=== PATIENT | male | born 1965 | race Caucasian/White ===

== ENCOUNTER → 2017-08-27 16:48 | Outpatient (CLI) | payer BC, SELFPAY ==
[2017-08-27 17:11] LABS: Basophils % 0.4 % (0.1-2.0); Eosinophils # 0.3 K/mm3 (0.0-0.4); Eosinophils % 2.6 % (0.1-12.0); Hematocrit 41.7 % (42.0-52.0); Hemoglobin 14.3 g/dL (14.1-18.0); Lymphocytes # 2.4 K/mm3 (0.7-4.5); Lymphocytes % 23.1 K/mm3 (10-50); Mean Corpuscular HGB Conc 34.3 g/dL (31.8-35.4); Mean Corpuscular Hemoglobin 30.6 pg (27.0-31.2); Mean Corpuscular Volume 89.2 fl (80-94); Mean Platelet Volume 6.8 fl (7.4-10.4); Monocytes # 0.8 K/mm3 (0.1-1.0); Monocytes % 7.7 % (1.7-9.3); Neutrophils # 6.9 K/mm3 (1.8-7.8); Neutrophils % 66.2 % (37.0-80.0); Platelet Count 215 K/mm3 (142-424); Red Blood Count 4.68 M/mm3 (4.60-6.20); Red Cell Distribution Width 12.5 % (11.5-17.5); White Blood Count 10.5 K/mm3 (4.8-10.8)
[2017-08-27 18:13] LABS: Erythrocyte Sedimentation Rate 9 mm/hr (0-20)
[2017-08-27 18:45] LABS: Anion Gap 14.2 mEq/L (5-15); Blood Urea Nitrogen 13 mg/dL (7-18); Carbon Dioxide 29 mmol/L (21.0-32.0); Chloride 104 mmol/L (98-107); Creatinine,Serum 0.75 mg/dL (0.70-1.30); Estimated Glomerular Filt Rate 110 ml/min (>60); GFR (African American) 133 ML/MIN (>60); Glucose 92 mg/dL (74-106); Potassium 4.2 mmoL/L (3.5-5.1); Sodium 143 mmol/L (136-145); Uric Acid 8.5 mg/dL (2.6-7.2)
== END ==
PROVIDERS: PCP Internal Medicine Adolescent Medicine; Visit Provider Nurse Practitioner Family
DX: M25.571 Pain in right ankle and joints of right foot (principal); Z87.39 Personal history of other diseases of the musculoskeletal system and connective tissue
CPT/HCPCS: 36415; 80048; 84550; 85025; 85651

== ENCOUNTER → 2017-10-17 16:11 | Outpatient (REF) | payer BC, SELFPAY ==
[2017-10-17 18:13] LABS: Hemoglobin A1C 5.7 % (0.0-7.0)
[2017-10-17 18:23] LABS: Basophils # 0.1 K/mm3 (0-0.2); Basophils % 0.6 % (0.1-2.0); Eosinophils # 0.3 K/mm3 (0.0-0.4); Eosinophils % 3.3 % (0.1-12.0); Hematocrit 42.4 % (42.0-52.0); Hemoglobin 14.5 g/dL (14.1-18.0); Lymphocytes # 2.3 K/mm3 (0.7-4.5); Lymphocytes % 30.6 K/mm3 (10-50); Mean Corpuscular HGB Conc 34.2 g/dL (31.8-35.4); Mean Corpuscular Hemoglobin 31.2 pg (27.0-31.2); Mean Corpuscular Volume 91.5 fl (80-94); Mean Platelet Volume 6.8 fl (7.4-10.4); Monocytes # 0.6 K/mm3 (0.1-1.0); Monocytes % 8.3 % (1.7-9.3); Neutrophils # 4.4 K/mm3 (1.8-7.8); Neutrophils % 57.2 % (37.0-80.0); Platelet Count 246 K/mm3 (142-424); Red Blood Count 4.63 M/mm3 (4.60-6.20); Red Cell Distribution Width 12.6 % (11.5-17.5); White Blood Count 7.6 K/mm3 (4.8-10.8)
[2017-10-17 20:00] LABS: Alanine Aminotransferase 36 U/L (12-78); Albumin Level 4.7 gm/dL (3.4-5.0); Albumin/Globulin Ratio 1.7 (1.1-1.8); Alkaline Phosphatase 103 U/L (46-116); Anion Gap 12.5 mEq/L (5-15); Aspartate Amino Transferase 25 U/L (15-37); Bilirubin,Total 0.6 mg/dL (0.2-1.0); Blood Urea Nitrogen 9 mg/dL (7-18); Carbon Dioxide 31 mmol/L (21.0-32.0); Chloride 103 mmol/L (98-107); Chol/HDL Ratio 4.8 (1-3.5); Cholesterol 183 mg/dL (140-200); Estimated Glomerular Filt Rate 119 ml/min (>60); GFR (African American) 144 ML/MIN (>60); Globulin 2.8 gm/dl (1.3-3.2); Glucose 91 mg/dL (74-106); HDL Cholesterol 38 mg/dL (27-67); LDL Cholesterol 103 mg/dL (0-130); Potassium 4.5 mmoL/L (3.5-5.1); Sodium 142 mmol/L (136-145); Total Protein,Serum 7.5 gm/dL (6.4-8.2); Triglycerides 210 mg/dL (30-200); VLDL Cholesterol 42 mg/dL (0-40)
[2017-10-19 07:13] LABS: Hep A Ab, IgM Negative (Negative); Hepatitis B Core Antibody IgM Negative (Negative); Hepatitis B Surface Antigen Negative (Negative)
[2017-10-19 10:54] LABS: CA 19-9 7 U/mL (0-35); Hepatitis C Antibody <0.1 s/co ratio (0.0-0.9); PSA, Free 0.21 ng/mL; Prostate Specific Ag 1.2 ng/mL (0.0-4.0)
== END ==
LOC: LAB 16:11
PROVIDERS: Visit Provider Nurse Practitioner Family
DX: R53.82 Chronic fatigue, unspecified (principal); Z80.0 Family history of malignant neoplasm of digestive organs; Z83.3 Family history of diabetes mellitus
CPT/HCPCS: 80053; 80061; 80074; 83036; 84153; 84154; 85025; 86316

== ENCOUNTER → 2018-11-15 10:00 | Outpatient (CLI) | payer BC, SELFPAY ==
[2018-11-15 10:05] LABS: Microscopic, Urine URINE MICROSCOPIC (MICROSCOPIC)
--- NOTE | 2018-11-15 10:20 | XR_ITS ---
XR chest 2V HISTORY: ITS.REASON: PRIOR SMOKER ORDERING PHYSICIAN: Referral ProviderMD PATIENT AGE: 53 years Technique: PA and lateral CXR COMPARISON: . 05/28/2008 CXR. FINDINGS: The lungs appear well expanded clear with nothing definitely acute. No significant change since prior studies. Upper normal markings toward right lower lobe reflecting some minor chronic changes but stable. No pleural effusion or pneumothorax. No lung nodule or lesion of significance.. The heart, armiro and mediastinal structures satisfactory. Normal pulmonary vascularity Chest wall and T-spine unremarkable.. IMPRESSION stable chest nothing definitely acute. Lungs clear.
[2018-11-15 10:53] LABS: Basophils % 0.7 % (0.1-2.0); Eosinophils # 0.3 K/mm3 (0.0-0.4); Eosinophils % 5.5 % (0.1-12.0); Hematocrit 44.1 % (42.0-52.0); Hemoglobin 15.5 g/dL (14.1-18.0); Lymphocytes # 2.2 K/mm3 (0.7-4.5); Lymphocytes % 34.9 % (10-50); Mean Corpuscular HGB Conc 35.2 g/dL (31.8-35.4); Mean Corpuscular Hemoglobin 31.4 pg (27.0-31.2); Mean Corpuscular Volume 89.3 fl (80-94); Mean Platelet Volume 6.3 fl (7.4-10.4); Monocytes # 0.4 K/mm3 (0.1-1.0); Monocytes % 6.9 % (1.7-9.3); Neutrophils # 3.2 K/mm3 (1.8-7.8); Neutrophils % 52.1 % (37.0-80.0); Platelet Count 227 K/mm3 (142-424); Red Blood Count 4.93 M/mm3 (4.60-6.20); Red Cell Distribution Width 12.7 % (11.5-17.5); White Blood Count 6.2 K/mm3 (4.8-10.8)
[2018-11-15 11:02] LABS: INR 0.92 (0.9-1.1); Prothrombin Time 9.5 seconds (9.4-11.8)
[2018-11-15 11:09] LABS: Hemoglobin A1C 5.8 % (0.0-7.0)
[2018-11-15 11:33] LABS: Anion Gap 15.3 mEq/L (5-15); Blood Urea Nitrogen 8 mg/dL (7-18); Calcium 9.1 mg/dL (8.5-10.1); Carbon Dioxide 25 mmol/L (21.0-32.0); Chloride 103 mmol/L (98-107); Creatinine,Serum 0.72 mg/dL (0.70-1.30); Estimated Glomerular Filt Rate 115 ml/min (>60); GFR (African American) 139 ML/MIN (>60); Glucose 128 mg/dL (74-106); Sodium 139 mmol/L (136-145)
[2018-11-15 11:35] LABS: Potassium 4.3 mmoL/L (3.5-5.1)
[2018-11-15 11:44] LABS: Appearance,Urine CLEAR (Clear); Bilirubin,Urine Negative (Negative); Blood, Urine Negative (Negative); Color,Urine YELLOW (Yellow); Glucose,Urine (UA) Negative (Negative); Ketones,Urine Negative (Negative); Leukocyte Esterase,Urine Negative (Negative); Nitrate,Urine Negative (Negative); Protein,Urine Negative (Negative); Urobilinogen,Urine 0.2 EU/dl (0.2)
[2018-11-15 12:16] LABS: RBC,Urine Occasional #/hpf (0-3)
[2018-11-15 12:17] LABS: Bacteria,Urine Trace /lpf; Mucus,Urine Trace /lpf
== END ==
PROVIDERS: Visit Provider Orthopaedic Surgery Adult Reconstructive Orthopaedic Surgery
DX: Z01.818 Encounter for other preprocedural examination (principal); M17.11 Unilateral primary osteoarthritis, right knee
CPT/HCPCS: 36415; 71046; 80048; 81001; 83036; 85025; 85610; 85730; 87081; 87086; 93005

== ENCOUNTER → 2018-12-11 17:36 | Outpatient (CLI) | payer BC, SELFPAY ==
[2018-12-11 17:43] LABS: Microscopic, Urine URINE MICROSCOPIC (MICROSCOPIC)
[2018-12-11 18:14] LABS: Basophils # 0.1 K/mm3 (0-0.2); Basophils % 0.9 % (0.1-2.0); Eosinophils # 0.3 K/mm3 (0.0-0.4); Eosinophils % 4.5 % (0.1-12.0); Hematocrit 43.9 % (42.0-52.0); Hemoglobin 15.2 g/dL (14.1-18.0); Lymphocytes # 2.6 K/mm3 (0.7-4.5); Lymphocytes % 35.5 % (10-50); Mean Corpuscular HGB Conc 34.6 g/dL (31.8-35.4); Mean Corpuscular Hemoglobin 30.9 pg (27.0-31.2); Mean Corpuscular Volume 89.4 fl (80-94); Mean Platelet Volume 6.3 fl (7.4-10.4); Monocytes # 0.5 K/mm3 (0.1-1.0); Monocytes % 6.4 % (1.7-9.3); Neutrophils # 3.9 K/mm3 (1.8-7.8); Neutrophils % 52.7 % (37.0-80.0); Platelet Count 233 K/mm3 (142-424); Red Blood Count 4.91 M/mm3 (4.60-6.20); Red Cell Distribution Width 12.5 % (11.5-17.5); White Blood Count 7.4 K/mm3 (4.8-10.8)
[2018-12-11 18:23] LABS: Appearance,Urine CLEAR (Clear); Bilirubin,Urine Negative (Negative); Blood, Urine Negative (Negative); Color,Urine YELLOW (Yellow); Glucose,Urine (UA) Negative (Negative); Ketones,Urine Negative (Negative); Leukocyte Esterase,Urine Negative (Negative); Nitrate,Urine Negative (Negative); Protein,Urine Negative (Negative); Specific Gravity, Urine 1.015 (1.005-1.030); Urobilinogen,Urine 0.2 EU/dl (0.2)
[2018-12-11 18:49] LABS: WBC,Urine Occasional #/hpf (0-3)
[2018-12-11 18:50] LABS: Bacteria,Urine Trace /lpf
[2018-12-11 19:03] LABS: Anion Gap 13.8 mEq/L (5-15); Blood Urea Nitrogen 10 mg/dL (7-18); Calcium 9.3 mg/dL (8.5-10.1); Carbon Dioxide 27 mmol/L (21.0-32.0); Chloride 104 mmol/L (98-107); Creatinine,Serum 0.72 mg/dL (0.70-1.30); Estimated Glomerular Filt Rate 115 ml/min (>60); GFR (African American) 139 ML/MIN (>60); Glucose 96 mg/dL (74-106); Potassium 3.8 mmoL/L (3.5-5.1); Sodium 141 mmol/L (136-145)
[2018-12-11 19:20] LABS: Hemoglobin A1C 5.8 % (0.0-7.0)
[2018-12-13 06:13] LABS: Hep A Ab, IgM Negative (Negative); Hepatitis B Core Antibody IgM Negative (Negative); Hepatitis B Surface Antigen Negative (Negative)
[2018-12-13 07:02] LABS: Hepatitis C Antibody <0.1 s/co ratio (0.0-0.9)
== END ==
PROVIDERS: Orthopaedic Surgery Adult Reconstructive Orthopaedic Surgery; PCP Nurse Practitioner Family; Visit Provider Nurse Practitioner Family
DX: Z20.5 Contact with and (suspected) exposure to viral hepatitis (principal)
CPT/HCPCS: 36415; 80048; 80074; 81001; 83036; 85025; 87081; 87086

== ENCOUNTER 2019-02-26 10:00 | Outpatient (RCR) | payer BC, SELFPAY | END 2019-02-26 10:05 | disposition home or self-care (01) | LOC: PT 10:00 | PROVIDERS: Visit Provider Orthopaedic Surgery Adult Reconstructive Orthopaedic Surgery | DX: Z96.651 Presence of right artificial knee joint (principal) | CPT/HCPCS: 97010; 97014; 97016; 97110; 97140; 97163; 97164; G0283 ==

== ENCOUNTER → 2019-03-17 07:07 | Outpatient (CLI) | payer BC, SELFPAY ==
[2019-03-17 07:11] LABS: Microscopic, Urine URINE MICROSCOPIC (MICROSCOPIC)
--- NOTE | 2019-03-17 07:26 | ECG_ITS ---
APPROVED REPORT Exam: Resting ECG HR:80 bpm ECG Measurements Heart Rate 80 AXES AZ 100 P 41 QRSd 88 QRS -8 QT 376 T 51 QTc 433 <Conclusion> Sinus rhythm with short AZ Moderate voltage criteria for LVH, may be normal variant Nonspecific T wave abnormality Abnormal ECG Electronically signed by : Keo Cardona, 03/17/2019 16:53:09
--- NOTE | 2019-03-17 07:29 | XR_ITS ---
PROCEDURE: XR CHEST 2V CLINICAL HISTORY: HX TOBACCO USE, PRE OP Tobacco use COMPARISON: No exams were available for comparison FINDINGS: The cardiomediastinal silhouette and pulmonary vascularity are within normal limits.The lungs are clear without infiltrates, suspicious nodules, or pleural effusions. No acute bony abnormalities. IMPRESSION: No acute findings. Dictated by: Michael English MD 03/17/2019 11:10 Signed by: <Electronically signed by Michael English MD in [place]> 03/17/2019 11:10
[2019-03-17 07:34] LABS: Activated Partial Thrombo Time 26.9 seconds (23.6-34.0); INR 0.95 (0.9-1.1); Prothrombin Time 9.9 seconds (9.4-11.8)
[2019-03-17 08:00] LABS: Appearance,Urine CLEAR (Clear); Bilirubin,Urine Negative (Negative); Blood, Urine Negative (Negative); Color,Urine YELLOW (Yellow); Glucose,Urine (UA) Negative (Negative); Ketones,Urine Negative (Negative); Leukocyte Esterase,Urine Negative (Negative); Nitrate,Urine Negative (Negative); PH,Urine 5.5 (5.0-8.5); Protein,Urine Negative (Negative); Specific Gravity, Urine 1.025 (1.005-1.030); Urobilinogen,Urine 0.2 EU/dl (0.2)
[2019-03-17 08:30] LABS: Bacteria,Urine Trace /lpf; Squamous Epithelial Cell,Urine Occasional #/hpf (0-5)
[2019-03-17 08:34] LABS: Basophils % 0.8 % (0.1-2.0); Eosinophils # 0.3 K/mm3 (0.0-0.4); Eosinophils % 4.4 % (0.1-12.0); Hematocrit 44.7 % (42.0-52.0); Hemoglobin 14.8 g/dL (14.1-18.0); Lymphocytes # 2.1 K/mm3 (0.7-4.5); Lymphocytes % 36.5 % (10-50); Mean Corpuscular HGB Conc 33.2 g/dL (31.8-35.4); Mean Corpuscular Hemoglobin 29.6 pg (27.0-31.2); Mean Corpuscular Volume 89.1 fl (80-94); Mean Platelet Volume 6.6 fl (7.4-10.4); Monocytes # 0.4 K/mm3 (0.1-1.0); Monocytes % 6.2 % (1.7-9.3); Neutrophils % 52.1 % (37.0-80.0); Platelet Count 263 K/mm3 (142-424); Red Blood Count 5.02 M/mm3 (4.60-6.20); Red Cell Distribution Width 13.4 % (11.5-17.5); White Blood Count 5.7 K/mm3 (4.8-10.8)
[2019-03-17 13:40] LABS: Anion Gap 16.4 mEq/L (5-15); Blood Urea Nitrogen 11 mg/dL (7-18); Calcium 9.4 mg/dL (8.5-10.1); Carbon Dioxide 28 mmol/L (21.0-32.0); Chloride 106 mmol/L (98-107); Creatinine,Serum 0.82 mg/dL (0.70-1.30); Estimated Glomerular Filt Rate 99 ml/min (>60); GFR (African American) 119 ML/MIN (>60); Glucose 133 mg/dL (74-106); Potassium 4.4 mmoL/L (3.5-5.1); Sodium 146 mmol/L (136-145)
== END ==
PROVIDERS: Visit Provider Orthopaedic Surgery Adult Reconstructive Orthopaedic Surgery
DX: Z01.818 Encounter for other preprocedural examination (principal); M17.12 Unilateral primary osteoarthritis, left knee
CPT/HCPCS: 36415; 71046; 80048; 81001; 83036; 85025; 85610; 85730; 87081; 93005

== ENCOUNTER 2019-06-02 08:30 | Outpatient (RCR) | payer BC, SELFPAY | END 2019-06-02 08:35 | disposition home or self-care (01) | LOC: PT 08:30 | PROVIDERS: PCP Nurse Practitioner Family; Visit Provider Orthopaedic Surgery Adult Reconstructive Orthopaedic Surgery | DX: Z96.652 Presence of left artificial knee joint (principal); M25.562 Pain in left knee | CPT/HCPCS: 97010; 97014; 97016; 97110; 97140; 97163; 97164; G0283 ==

== ENCOUNTER → 2019-08-19 08:32 | Outpatient (POV) | payer BC, SELFPAY | PROVIDERS: Visit Provider Dermatology | DX: Z00.00 Encounter for general adult medical examination without abnormal findings (principal) ==

== ENCOUNTER → 2019-09-23 14:19 | Outpatient (CLI) | payer BC, SELFPAY ==
--- NOTE | 2019-09-23 14:23 | XR_ITS ---
PROCEDURE: XR CERVICAL SPINE 5V CLINICAL INDICATION: neck pain COMPARISON: No exams were available for comparison FINDINGS: There is normal alignment. No fracture or dislocation. No lytic or blastic change. The disc spaces are well preserved. No evidence of cervical rib. IMPRESSION: Negative cervical spine Dictated by: Michael English MD 09/23/2019 16:03 Electronically signed by Michael English MD in [place] 09/23/2019 16:03
--- NOTE | 2019-09-23 14:23 | XR_ITS ---
PROCEDURE: XR HAND LT MIN 3V CLINICAL INDICATION: left hand pain COMPARISON: No exams were available for comparison FINDINGS: No fracture or dislocation. No lytic or blastic change. There is normal mineralization. The joint spaces are well-preserved. No significant degenerative/arthritic changes. No erosive changes evident. Other findings:There is some minimal ossification along the lateral aspect of the 1st metacarpal-carpal joint and there is an old fracture of the ulnar styloid process versus ununited ossification center with calcification of the triangular fibrocartilage. IMPRESSION: No acute finding. There is some periarticular ossification the 1st metacarpal-carpal joint along with old ulnar styloid fracture versus ununited ossification center with calcification of the triangular fibrocartilage Dictated by: Michael English MD 09/23/2019 15:44 Electronically signed by Michael English MD in [place] 09/23/2019 15:44
--- NOTE | 2019-09-23 14:23 | XR_ITS ---
PROCEDURE: XR LUMBAR SPINE MIN 4V CLINICAL INDICATION: back pain COMPARISON: No exams were available for comparison FINDINGS: There is normal alignment. No acute fracture or dislocation. No lytic or blastic change. Minimal endplate hypertrophic changes are present inferiorly at L2 and L3. There is mild degenerative disc disease at L5-S1. Incidental calcification is noted in the right upper quadrant and may be due to gallstones or upper pole renal stones. Gallbladder ultrasound may provide further evaluation. There is a small calcific density overlying the right ilium nonspecific. Vascular calcifications are also noted. IMPRESSION: Mild degenerative changes, mild degenerative disc disease L5-S1, Right upper quadrant cluster calcifications consistent with gallstones or possibly renal stones Dictated by: Michael English MD 09/23/2019 15:47 Electronically signed by Michael English MD in [place] 09/23/2019 15:47
[2019-09-23 17:35] LABS: Basophils # 0.1 K/mm3 (0-0.2); Basophils % 0.9 % (0.1-2.0); Eosinophils # 0.3 K/mm3 (0.0-0.4); Eosinophils % 4.1 % (0.1-12.0); Hematocrit 43.8 % (42.0-52.0); Hemoglobin 15.5 g/dL (14.1-18.0); Lymphocytes # 2.1 K/mm3 (0.7-4.5); Lymphocytes % 30.8 % (10-50); Mean Corpuscular HGB Conc 35.4 g/dL (31.8-35.4); Mean Corpuscular Hemoglobin 31.3 pg (27.0-31.2); Mean Corpuscular Volume 88.6 fl (80-94); Mean Platelet Volume 8.9 fl (7.4-10.4); Monocytes # 0.5 K/mm3 (0.1-1.0); Monocytes % 7.2 % (1.7-9.3); Neutrophils # 3.8 K/mm3 (1.8-7.8); Neutrophils % 56.9 % (37.0-80.0); Platelet Count 279 K/mm3 (142-424); Red Blood Count 4.95 M/mm3 (4.60-6.20); White Blood Count 6.7 K/mm3 (4.8-10.8)
[2019-09-23 17:57] LABS: Alanine Aminotransferase 28 U/L (12-78); Albumin Level 4.9 g/dl (3.5-5.0); Albumin/Globulin Ratio 1.8 (1.1-1.8); Alkaline Phosphatase 83 U/L (38-126); Anion Gap 13.9 mEq/L (5-15); Aspartate Amino Transferase 36 U/L (17-59); Bilirubin,Total 0.8 mg/dl (0.2-1.3); Blood Urea Nitrogen 11 mg/dl (9-20); Calcium 10.1 mg/dl (8.4-10.2); Carbon Dioxide 28 mmol/L (22.0-30.0); Chloride 102 mmol/L (98-107); Estimated Glomerular Filt Rate 141 ml/min (>60); GFR (African American) 171 ML/MIN (>60); Globulin 2.7 g/dL (1.3-3.2); Glucose 101 mg/dl (74-100); Potassium 3.9 mmoL/L (3.5-5.1); Sodium 140 mmol/L (136-145); Total Protein,Serum 7.6 g/dl (6.3-8.2); Uric Acid 7.8 mg/dl (3.5-8.5)
[2019-09-23 18:03] LABS: C-Reactive Protein 1.2 mg/L (0-4)
[2019-09-23 19:49] LABS: Erythrocyte Sedimentation Rate 20 mm/hr (0-20)
[2019-10-03 16:09] LABS: Anti-Cyclic Citrullinated Pept 10
[2019-10-03 16:10] LABS: RA Latex Turbid. <10.0
[2019-10-03 16:12] LABS: Anti-DNA (DS) Ab Qn <1; Anti-Smith Antibody <0.2; Antiscleroderma-70 Antibodies <0.2; RNP Antibodies <0.2
[2019-10-03 16:13] LABS: Anti-Centromere B Antibodies <0.2; Anti-Jo-1 <0.2; Antichromatin Antibodies <0.2; Sjogren's Anti-SS-A <0.2; Sjogren's Anti-SS-B <0.2
== END ==
PROVIDERS: PCP Nurse Practitioner Family; Visit Provider Emergency Medicine
DX: M54.2 Cervicalgia (principal); M54.9 Dorsalgia, unspecified; M19.90 Unspecified osteoarthritis, unspecified site; M54.5 Low back pain
CPT/HCPCS: 72050; 72110; 73130; 80053; 84550; 85025; 85651; 86140; 86200; 86225; 86235; 86431

== ENCOUNTER → 2019-09-23 17:15 | Outpatient (CLI) | payer BC, SELFPAY | PROVIDERS: Visit Provider Emergency Medicine | DX: M54.2 Cervicalgia (principal) | CPT/HCPCS: 80053; 84550; 85025; 85651; 86140; 86200; 86225; 86235; 86431 ==

== ENCOUNTER → 2019-10-07 08:36 | Outpatient (CLI) | payer BC, SELFPAY ==
--- NOTE | 2019-10-07 10:47 | XR_ITS ---
PROCEDURE: XR ANKLE WT BEARING LT MIN 3V CLINICAL INDICATION: ankle pain and instability Left plantar foot pain COMPARISON: No exams were available for comparison FINDINGS: No fracture or dislocation. No lytic or blastic change. The joint space is well preserved. The ankle mortise is preserved. The talar dome has an unremarkable appearance. There is a small well-circumscribed calcific density at the tip of the lateral malleolus and may be due to an old avulsion fracture versus ununited ossification center IMPRESSION: Old avulsion fracture versus ununited ossification center at the lateral malleolus otherwise negative Dictated by: Michael English MD 10/07/2019 11:54 Electronically signed by Michael English MD in [place] 10/07/2019 11:54
--- NOTE | 2019-10-07 10:47 | XR_ITS ---
PROCEDURE: XR ANKLE WT BEARING RT MIN 3V CLINICAL INDICATION: ankle pain and instability COMPARISON: No exams were available for comparison FINDINGS: No fracture or dislocation. No lytic or blastic change. The joint space is well preserved. The ankle mortise is preserved. The talar dome has an unremarkable appearance. IMPRESSION: No acute findings. Dictated by: Michael English MD 10/07/2019 11:25 Electronically signed by Michael English MD in [place] 10/07/2019 11:25
--- NOTE | 2019-10-07 10:47 | XR_ITS ---
PROCEDURE: XR FOOT WT BEARING RT 3V CLINICAL INDICATION: foot pain Medial pain COMPARISON: No exams were available for comparison FINDINGS: No fracture or dislocation. No lytic or blastic change. There is normal mineralization. The joint spaces are well-preserved. No significant degenerative/arthritic changes. No erosive changes evident. Other findings:None. IMPRESSION: Negative right Dictated by: Michael English MD 10/07/2019 11:51 Electronically signed by Michael English MD in [place] 10/07/2019 11:51
--- NOTE | 2019-10-07 10:47 | XR_ITS ---
PROCEDURE: XR FOOT WT BEARING LT 3V CLINICAL INDICATION: foot pain COMPARISON: No exams were available for comparison FINDINGS: No fracture or dislocation. No lytic or blastic change. There is normal mineralization. The joint spaces are well-preserved. No significant degenerative/arthritic changes. No erosive changes evident. Other findings:Minimal vascular calcification noted IMPRESSION: No acute findings. Dictated by: Michael English MD 10/07/2019 11:55 Electronically signed by Michael English MD in [place] 10/07/2019 11:55
== END ==
PROVIDERS: PCP Nurse Practitioner Family; Visit Provider Podiatrist
DX: M79.671 Pain in right foot (principal); M79.672 Pain in left foot; M25.571 Pain in right ankle and joints of right foot; M25.572 Pain in left ankle and joints of left foot
CPT/HCPCS: 73610; 73630

== ENCOUNTER → 2019-10-08 08:41 | Outpatient (CLI) | payer BC, SELFPAY ==
--- NOTE | 2019-10-08 08:52 | US_ITS ---
PROCEDURE: US ABDOMEN LIMITED CLINICAL INDICATION: ruq calcifications seen on xray Right upper quadrant calcifications noted on recent x-ray the COMPARISON: XR LUMBAR SPINE MIN 4V from 09/23/2019 FINDINGS: PANCREAS: Unremarkable. No obvious mass or abnormal fluid collection. No ductal dilatation LIVER: No focal liver lesions demonstrated. Homogeneous echogenicity. No intrahepatic biliary ductal dilatation evident. There is appropriate direction of blood flow within a non dilated portal vein RIGHT KIDNEY: There is a benign-appearing 2.6 cm cyst in the mid polar region of the right kidney. No hydronephrosis. No obvious renal calculi demonstrated. GALLBLADDER: No gallstones, gallbladder wall thickening, pericholecystic fluid, or biliary dilatation. No obvious gallstones are evident. There was some questionable shadowing within the neck of the gallbladder. This however was not persistent. IMPRESSION: No gallstones are demonstrated. The plain-film was suspicious for cholelithiasis. Suggest CT for further evaluation. Dictated by: Michael English MD 10/08/2019 15:46 Electronically signed by Michael English MD in [place] 10/08/2019 15:46
== END ==
PROVIDERS: PCP Nurse Practitioner Family; Visit Provider Physician Assistant
DX: R93.89 Abnormal findings on diagnostic imaging of other specified body structures (principal)
CPT/HCPCS: 76705

== ENCOUNTER → 2019-12-26 07:36 | Outpatient (CLI) | payer BC, SELFPAY ==
--- NOTE | 2019-12-26 07:45 | MR_ITS ---
PROCEDURE: MR LUMBAR SPINE WO CON CLINICAL INDICATION: back pain Low back pain COMPARISON: XR LUMBAR SPINE MIN 4V from 09/23/2019 TECHNIQUE: Standard multiplanar multiecho sequences are performed without contrast. 3-D MIP and myelographic images are also rendered and reviewed FINDINGS: Normal alignment. The spinal cord ends at the L1 level. There is diffuse heterogeneous T1 and T2 signal within the vertebra consistent with mild red marrow replacement which is of questionable clinical significance. T12-L1, L1-L2, L2-L3 have an unremarkable appearance. L3-L4: Facet ligamentum hypertrophy with mild bilateral lateral recess and foraminal narrowing L4-5: Mild disc desiccation with minimal bulging disc with facet and ligamentum hypertrophy with mild bilateral lateral recess and foraminal narrowing L5-S1: Degenerative disc disease with mild bulging disc along with facet ligamentum hypertrophy with moderate bilateral foraminal narrowing No extruded herniated disc or canal stenosis. Incidental note is made of a 2.8 cm right renal cyst IMPRESSION: 1. L3-L4: Facet ligamentum hypertrophy with mild bilateral lateral recess and foraminal narrowing 2. L4-5: Mild disc desiccation with minimal bulging disc with facet and ligamentum hypertrophy with mild bilateral lateral recess and foraminal narrowing 3. L5-S1: Degenerative disc disease with mild bulging disc along with facet ligamentum hypertrophy with moderate bilateral foraminal narrowing 4. No extruded herniated disc or canal stenosis. 5. Incidental note is made of a 2.8 cm right renal cyst Dictated by: Michael English MD 12/29/2019 07:21 Electronically signed by Michael English MD in [place] 12/29/2019 07:21
== END ==
PROVIDERS: PCP Nurse Practitioner Family; Visit Provider Emergency Medicine
DX: M54.9 Dorsalgia, unspecified (principal)
CPT/HCPCS: 72148; 76376

== ENCOUNTER → 2020-01-12 12:27 | Outpatient (POV) | payer BC, SELFPAY ==
[2020-01-12 12:57] VITALS: BP 146/69; PULSE 84; RESP 18; TEMP 36.9; O2SAT 99; BMI 34.4
--- NOTE | 2020-01-12 13:31 | HMH.PMCON ---
Assessment and Plan (1) Sacroiliitis Current visit: Yes Status: Chronic Category: Medical Code(s): M46.1 - Sacroiliitis, not elsewhere classified (2) DDD (degenerative disc disease), lumbar Current visit: No Status: Chronic Category: Medical Code(s): M51.36 - Other intervertebral disc degeneration, lumbar region - Assessment and plan all Dx Assessment and Plan for all problems:: I offered SI joint injections to the patient. He is unsure if he wants to move forward with this. He is asking for medication I discussed 800 mg ibuprofen to take along with his Tylenol. Patient states that he was put told by Dr. Long that it was unsure if he would be able to return to work. He is asking me about work. I discussed with him that are all ultimate goal would be for him to return to work. He has been instructed to call the office if he like to go forward with SI joint injections. Dr. Denny has reviewed this note and agrees with this plan of care. This note was dictated using voice recognition software and may contain errors or omissions HPI - Data of Consult Consult date: 01/12/20 Requesting Physician: Clotilde Vaca APRN Primary Care Provider: Marco Marie APRN - Consult Narrative Reason for consult: Back pain History of present illness: Mr. Dumas is a 54 year old male who presents today for consultation in regards to his low back pain. Patient noticed that he started having pain in his low back after his bilateral knee replacements. Patient rates his pain today 6 out of 10. He states is not too bad patient states that he takes Tylenol and Advil to help decrease his pain. He does have a positive Jackson test SI joint compression test and Gregory's test on the right side. Patient I discussed SI joint injections. Patient states he is unsure if he would like to move forward with this. He is in wondering if there is any medication that he can take to help. CC: Clotilde Vaca APRN [place] History I have reviewed the patient's past medical history: Yes Medical History: Denies:: Cancer, Diabetes Mellitus Type 1, Diabetes Mellitus Type 2, Internal Pacemaker, Lung Disease, MRSA, Seizures *Have you ever received a pneumonia vaccine?: Yes *Have you received a flu vaccine this season?: Yes Other Medical History: Reports: Arthritis, Other. Denies: Blood Transfusion Reaction Laterality Cases: Bilateral: Arthroscopy Knee Other Surgeries: Yes: Colonoscopy (2018). No: Pacemaker Amputation: No Fractures: No - *Social History Smoking Status: Never smoker Alcohol Intake: never Alcohol Intake Frequency:: other Substance Use Type: denies use *Occupational Status:: other Housing: house Household Members: other *Travel in the last 8 weeks: None Family Hx:: Cancer, Heart Attack, Diabetes Review of Systems - Review of Systems ROS General: no recent weight change, no fever, no sleep disturbances Respiratory: no cough, no shortness of air, no recurring pulmonary infections Cardiovascular/Peripheral Vascular: No chest pain, No palpitations, no edema, no shortness of breath. Gastrointestinal: no new onset incontinence, normal bowel movements reported Genitourinary: no new onset incontinence Musculoskeletal: back pain, SI joint pain Psychiatric: normal mood/ affect Neurological: [denies new onset weakness in extremities], [denies new onset balance issues] Meds Home Medications Medication Instructions Recorded Confirmed Type colchicine 0.6 mg capsule 0.6 mg PO DAILY 10/07/19 12/15/19 History diclofenac sodium 1 % topical gel 4 g TOPICAL QID PRN #100 g 10/07/19 12/15/19 Rx meloxicam 7.5 mg tablet 7.5 mg PO DAILY 30 Days #30 tab 11/18/19 12/15/19 Rx Allergies Allergy/AdvReac Type Severity Reaction Status Date / Time prochlorperazine Allergy Verified 12/15/19 10:28 [From Compazine] Objective Vital signs: Temp Pulse Resp BP Pulse Ox 98.5 F 84 18 146/69 H 99 06/
== END ==
PROVIDERS: PCP Nurse Practitioner Family; Visit Provider Clinical Nurse Specialist Family Health
DX: M46.1 Sacroiliitis, not elsewhere classified (principal); M51.36 Other intervertebral disc degeneration, lumbar region
CPT/HCPCS: 99202

== ENCOUNTER 2020-02-12 08:00 | Outpatient (RCR) | payer BC, SELFPAY ==
--- NOTE | 2019-12-24 11:23 | HMH.PTOPEV ---
PT Outpatient Evaluation Rehab PT Outpatient Evaluation Start: 12/24/19 10:59 Freq: Status: Active Protocol: Document 12/24/19 10:59 TRAVIS (Rec: 12/24/19 11:23 TRAVIS [id number]) Electronically Signed By Gerald Hernandez, PT 12/24/19 10:59 Outpatient Therapy Subjective History Subjective History Pt reports potential lifting injury in Jul/Aug d/t limitations in B knee ROM. Pt reports R sided LBP with intermittent radicular s/s into R hip area. Pt reports also currrently going to chiropractor with minimal improvements in LBP. Chief Complaint Pain,Stiff,Paresthesia, Weakness Symptom Type Ache,Sharp,Dull Symptoms Relieved By Rest/Positioning,Heat Symptoms Aggravated By Physical Activity,Twisting, Lifting Prior Functional Limitations Lifting,Housework,Standing, Walking,Bending/Stooping Current Functional Limitations Lifting,Housework,Standing, Walking,Bending/Stooping Symptom Description Constant but Variable Level of pain today (0-10) 6 Pain scale - at its best (0-10) 5 Pain scale - at its worst (0-10) 8 Lumbopelvic Eval Posture Thoracic Spine Posture Standing Position Neutral Lumbar Spine Posture Standing Position Flattened Assistive device Assistive Devices None / NA Gait Observation General Gait Pattern Observation Antalgic Gait Palapation tenderness right lumbar spinal tenderness Yes: 2-3/4 paraspinal tenderness Yes: 3/4 buttock tenderness Yes: 3/4 Accessory Movement L-spine Vertebrae Accessory Movements Central P/A [place] that Elicit Symptoms L3 bilateral L4 bilateral L5 bilateral Range of Motion Lumbar Spine Active Flexion Range of 0-60 Motion (degrees) Lumbar Spine Active Extension Range of 0-10 Motion (degrees) Left Lumbar Spine Lateral Flexion Active 0-25 Range of Motion (degrees) Right Lumbar Spine Lateral Flexion 0-15 Active Range of Motion (degrees) Lumbar Spine ROM Limitations Pain Manual Muscle Test Bilateral Knee Extension Strength Grade 4 Good Knee Flexion Strength Grade 4- Good- Hip Flexion Strength Grade 4- Good- Extensor Hallucis Longus Strength Grade 5 Normal Ankle Dorsiflexion Strength Grade 5 Normal Gastronemius/Soleus Strength Grade 5 Normal DTR Rt Patellar 1+ Lt Patellar
--- NOTE | 2020-01-30 08:22 | HMH.RHREAS ---
Rehab Reassessment Rehab OP Re-assessment Start: 01/30/20 07:58 Freq: Status: Active Protocol: Document 01/30/20 07:58 TRAVIS (Rec: 01/30/20 08:22 [id number]) Electronically Signed By Gerald Hernandez, PT 01/30/20 07:58 Rehab Re-assessment Subjective Subjective PT REPORTS INCREASED LBP SINCE FALLING A COUPLE DAYS AGO, ' IT WAS ABOUT 4-5/10, AND NOW IT'S MORE LIKE 7/10' ON VAS. Objective Objective Notes AROM: L-SPINE FLX 0-70, EXT 0- 20, B SB 0-30 MMT: B HIP FLX 4+/5, B KNEE FLX 4+/5 TTP: B LUMBAR PARA 1-2 Assessment Progress Assessment Progressing as Expected Assessment Notes PT W/IMPROVED AROM, STRENGTH, AND TTP Patient goals met STG'S 02/04 LTG'S 09/07 Goals Not Met STG'S 09/07, LTG'S 02/04 Plan Plan PT TO CONT. W/SKILLED P.T. TO MAKE FURTHER IMPROVEMENTS IN AROM, STRENGTH, ADN TTP TO ALLOW FOR OPTIMAL FUNCTION. PT HAS ALSO BEEN ADVISED TO LIMIT BENDING, LIFTING, TWISTING ACTIVITES 'AROUND THE HOUSE', PADDY. WHILE CARRYING ANYTHING >20#. Frequency of Therapy 1-2X/WK Duration of therapy 3-4WKS Time and Billing Re-Eval Time 15 Re-Eval Billing Units 1 PHYSICIAN CERTIFICATION: I certify the specified therapy services for Gavin Dumas are required, authorized, and reviewed every 30 days.
== END 2020-02-12 08:05 | disposition home or self-care (01) ==
LOC: PT 08:00
PROVIDERS: PCP Nurse Practitioner Family; Visit Provider Emergency Medicine
DX: M54.5 Low back pain (principal)
CPT/HCPCS: 97010; 97012; 97014; 97035; 97110; 97140; 97163; 97164; G0283

== ENCOUNTER → 2020-07-21 14:50 | Outpatient (CLI) | payer BC, SELFPAY ==
[2020-07-21 15:09] LABS: Basophils # 0.1 K/mm3 (0-0.2); Basophils % 0.9 % (0.1-2.0); Eosinophils # 0.3 K/mm3 (0.0-0.4); Eosinophils % 3.6 % (0.1-12.0); Hematocrit 49.1 % (42.0-52.0); Hemoglobin 16.2 g/dL (14.1-18.0); Lymphocytes # 2.2 K/mm3 (0.7-4.5); Lymphocytes % 31.4 % (10-50); Mean Corpuscular HGB Conc 32.9 g/dL (31.8-35.4); Mean Corpuscular Hemoglobin 31.3 pg (27.0-31.2); Mean Corpuscular Volume 95.1 fl (80-94); Monocytes # 0.5 K/mm3 (0.1-1.0); Monocytes % 6.4 % (1.7-9.3); Neutrophils % 57.7 % (37.0-80.0); Platelet Count 263 K/mm3 (142-424); Red Blood Count 5.17 M/mm3 (4.60-6.20); Red Cell Distribution Width 13.2 % (11.5-17.5)
[2020-07-21 15:17] LABS: Alanine Aminotransferase 28 U/L (12-78); Albumin Level 4.6 g/dl (3.5-5.0); Albumin/Globulin Ratio 1.7 (1.1-1.8); Alkaline Phosphatase 98 U/L (38-126); Anion Gap 12.4 mEq/L (5-15); Aspartate Amino Transferase 32 U/L (17-59); Bilirubin,Total 1.6 mg/dl (0.2-1.3); Blood Urea Nitrogen 11 mg/dl (9-20); Calcium 9.7 mg/dl (8.4-10.2); Carbon Dioxide 29 mmol/L (22.0-30.0); Chloride 101 mmol/L (98-107); Chol/HDL Ratio 5.3 (1-3.5); Cholesterol 191 mg/dl (140-200); Estimated Glomerular Filt Rate 118 ml/min (>60); GFR (African American) 142 ML/MIN (>60); Globulin 2.7 g/dL (1.3-3.2); Glucose 161 mg/dl (74-100); HDL Cholesterol 36 mg/dl (40-60); Potassium 4.4 mmoL/L (3.5-5.1); Sodium 138 mmol/L (136-145); Total Protein,Serum 7.3 g/dl (6.3-8.2); Triglycerides 229 mg/dl (30-150); VLDL Cholesterol 46 mg/dL (0-40)
[2020-07-21 15:34] LABS: 25-OH Vitamin D, Total 27.7 ng/mL (30-100)
[2020-07-21 15:37] LABS: T4 (Thyroxine) 8.4 ug/dl (5.53-11.0)
[2020-07-21 15:51] LABS: Thyroid Stimulating Hormone 4.98 uIU/mL (0.465-4.68)
[2020-07-21 16:33] LABS: Hemoglobin A1C 5.8 % (4.0-6.0)
== END ==
PROVIDERS: Visit Provider Nurse Practitioner Family
DX: I10 Essential (primary) hypertension (principal); I99.8 Other disorder of circulatory system; R53.83 Other fatigue; R73.03 Prediabetes; E55.9 Vitamin D deficiency, unspecified
CPT/HCPCS: 80053; 80061; 82306; 83036; 84436; 84443; 85025

== ENCOUNTER 2020-10-07 07:00 | Emergency (ER) | payer BC, SELFPAY ==
[2020-10-07 07:00] VITALS: BP 136/88; PULSE 75; RESP 20; TEMP 36.5; O2SAT 97; BMI 34.8
--- NOTE | 2020-10-07 07:17 | CT_ITS ---
PROCEDURE: CT ABDOMEN PELVIS WO CON CLINICAL INDICATION: back/side pain Right flank pain COMPARISON: No exams were available for comparison TECHNIQUE: Axial images obtained with sagittal and coronal reformats. All CT scans at the facility use one or more dose reduction, viz: automated exposure control, ma/kV adjustment per patient size (including targeted exams where dose is matched to indication, i.e. head), or iterative reconstruction technique. FINDINGS: LOWER THORAX: Subpleural nodular opacity is present in the right lower lobe posteriorly at 4 mm with an additional 4 mm nodule in the right lower lobe posterior laterally. Coronary artery calcifications are present. ABDOMEN & PELVIS: Mild fatty liver. The gallbladder and spleen and and adrenal glands all have an unremarkable unenhanced appearance. There is subtle heterogeneous density present in the head of the pancreas with some rounding off of the uncinate process. Suggest either MRI or CT of the pancreas with pancreatic protocol for further evaluation. There are bilateral renal calculi measuring up to 8 mm in the upper pole on the right and 4 mm in the lower pole on the left. There is a 4 mm stone in the proximal right ureter with mild right-sided hydroureteronephrosis. Right renal cysts are noted Unremarkable appendix. No intestinal obstruction or free air is evident. No acute bony findings. There are mild degenerative changes of the hips. IMPRESSION: 4 mm proximal right ureteral stone with mild right obstructive uropathy with bilateral nephrolithiasis. Possible lesion in the head of the pancreas. Further workup with MRI or CT with pancreatic protocol suggested. Dictated by: Michael English MD 10/07/2020 10:16 Michael English MD in [place] 10/07/2020 10:16
--- NOTE | 2020-10-07 07:24 | PC.NURSE ---
Patient to CT.
--- NOTE | 2020-10-07 07:26 | PC.NURSE ---
Pt states he can not urinate right now, he just went before he left his home.
--- NOTE | 2020-10-07 07:27 | PC.NURSE ---
Pt states the pain medicine helped his pain
[2020-10-07 07:30] VITALS: BP 123/76; RESP 20; O2SAT 98
[2020-10-07 07:51] LABS: Basophils # 0.1 K/mm3 (0-0.2); Eosinophils # 0.4 K/mm3 (0.0-0.4); Eosinophils % 4.4 % (0.1-12.0); Hematocrit 47.1 % (42.0-52.0); Hemoglobin 15.3 g/dL (14.1-18.0); Lymphocytes # 2.7 K/mm3 (0.7-4.5); Lymphocytes % 33.8 % (10-50); Mean Corpuscular HGB Conc 32.5 g/dL (31.8-35.4); Mean Corpuscular Hemoglobin 30.8 pg (27.0-31.2); Mean Corpuscular Volume 94.9 fl (80-94); Mean Platelet Volume 6.9 fl (7.4-10.4); Monocytes # 0.6 K/mm3 (0.1-1.0); Monocytes % 7.5 % (1.7-9.3); Neutrophils # 4.3 K/mm3 (1.8-7.8); Neutrophils % 53.2 % (37.0-80.0); Platelet Count 241 K/mm3 (142-424); Red Blood Count 4.96 M/mm3 (4.60-6.20)
[2020-10-07 07:55] LABS: Alanine Aminotransferase 26 U/L (12-78); Albumin Level 4.9 g/dl (3.5-5.0); Albumin/Globulin Ratio 1.6 (1.1-1.8); Alkaline Phosphatase 85 U/L (38-126); Anion Gap 13.3 mEq/L (5-15); Aspartate Amino Transferase 41 U/L (17-59); Bilirubin,Total 1.3 mg/dl (0.2-1.3); Blood Urea Nitrogen 14 mg/dl (9-20); Calcium 9.3 mg/dl (8.4-10.2); Carbon Dioxide 26 mmol/L (22.0-30.0); Chloride 104 mmol/L (98-107); Creatinine Clearance Estimated 165 mL/min (50-200); Estimated Glomerular Filt Rate 101 ml/min (>60); GFR (African American) 122 ML/MIN (>60); Glucose 132 mg/dl (74-100); Potassium 4.3 mmoL/L (3.5-5.1); Sodium 139 mmol/L (136-145); Total Protein,Serum 7.9 g/dl (6.3-8.2)
[2020-10-07 07:57] LABS: Microscopic, Urine URINE MICROSCOPIC (MICROSCOPIC)
[2020-10-07 08:00] VITALS: BP 135/84; PULSE 88; RESP 18; O2SAT 99
--- NOTE | 2020-10-07 08:06 | HMH.EDGENADL ---
ED Disposition Clinical Impression: Kidney stone UTI (urinary tract infection) Qualifiers: Urinary tract infection type: acute pyelonephritis Qualified Code(s): N10 - Acute pyelonephritis Disposition: Home, Self-Care Condition on Discharge: Fair Instructions: DI for Kidney Infection, DI for Kidney Stones Prescriptions: Hydrocod/Acet 5/325 mg [[place] 5/325mg tablet] 1 tab PO Q6HP PRN #12 tab PRN Reason: Severe Pain Transmission Status: Received by [facility] Sulfamethoxazole/Trimethoprim [Bactrim DS tablet] 1 each PO BID #14 tab Transmission Status: Received by [facility] Tamsulosin HCl [Flomax 0.4mg capsule] 0.4 mg PO HS #10 cap Transmission Status: Received by [facility] Ibuprofen [Ibuprofen 600mg Tablet] 600 mg PO TID #15 tab Transmission Status: Received by [facility] Ondansetron [Zofran 4mg ODT] 4 mg PO TIDP PRN #12 tab PRN Reason: Vomiting Transmission Status: Pending to [facility] Referrals: Marco Marie APRN [Primary Care Provider] - Hema Sanders MD [Staff Physician] - Time of Disposition: 08:50 - Critical Care Critical Care Time: No Attestation: On 10/07/20, the high probability of a clinically significant, sudden or life threatening deterioration of the following system(s) required my full and direct attention, intervention and personal management. The time I documented below is in addition to time spent performing reported procedures but includes the following listed in this critical care notation. Medical Decision Making - Medical Records Medical records reviewed: Yes: I reviewed the patient's medical records. - Jonas Inquiry Pt receiving controlled substance: No Vital Signs: 10/07/20 07:00 10/07/20 07:30 10/07/20 08:00 Temperature 97.7 F Temperature Source Oral Pulse Rate [Left Radial] 75 88 Respiratory Rate 20 20 18 Blood Pressure [Right Arm] 136/88 123/76 135/84 Blood Pressure Mean [Right Arm] 104 91 101 Blood Pressure Source [Right Arm] Automatic Cuff Blood Pressure Position [Right Arm] Sitting 02 Sat by Pulse Oximetry 97 98 99 Oxygen Delivery Method Room Air Room Air Room Air 10/07/20 08:35 10/07/20 09:00 Temperature Temperature Source Pulse Rate [Left Radial] 62 84 Respiratory Rate 18 18 Blood Pressure [Right Arm] 122/78 126/70 Blood Pressure Mean [Right Arm] 92 88 Blood Pressure Source [Right Arm] Blood Pressure Position [Right Arm] 02 Sat by Pulse Oximetry 98 99 Oxygen Delivery Method Room Air - Lab Data Lab Results 10/07/20 07:20: WBC 8.0, RBC 4.96, Hgb 15.3, Hct 47.1, MCV 94.9 H, MCH 30.8, MCHC 32.5, RDW 13.0, Plt Count 241, MPV 6.9 L, Neut % (Auto) 53.2, Lymph % (Auto) 33.8, [place] % (Auto) 7.5, Eos % (Auto) 4.4, Baso % (Auto) 1.0, Neut # (Auto) 4.3, Lymph # (Auto) 2.7, [place] # (Auto) 0.6, Eos # (Auto) 0.4, Baso # (Auto) 0.1 10/07/20 07:20: Sodium 139, Potassium 4.3, Chloride 104, Carbon Dioxide 26, Anion Gap 13.3, BUN 14, Creatinine 0.80, Estimated Creat Clear 165, Estimated GFR 101, Est GFR ( Amer) 122, Glucose 132 H, Calcium 9.3, Total Bilirubin 1.3, AST 41, ALT 26, Alkaline Phosphatase 85, Total Protein 7.9, Albumin 4.9, Globulin 3.0, Albumin/Globulin Ratio 1.6 10/07/20 07:50: Urine Color [place], Urine Appearance Sl cloudy, Urine pH 5.5, Ur Specific [place] >= 1.030, Urine Protein 2+, Urine Glucose (UA) Negative, Urine Ketones Negative, Urine Blood 3+, Urine Nitrate Positive, Urine Bilirubin Negative, Urine Urobilinogen 0.2, Ur Leukocyte Esterase Negative, Urine RBC Tntc, Urine WBC Occasional, Ur Squamous Epith Cells Occasional, Amorphous Sediment 2+, Urine Bacteria 2+ Result diagrams: 10/07/20 07:20 10/07/20 07:20 Orders (Tests/Meds): ED MEDICATIONS Generic Name Dose Route Start Last Admin Trade Name Freq PRN Reason Stop Dose Admin Sodium Chloride 1,000 mls @ 999 mls/hr 10/07/20 08:15 10/07/20 08:20 Sod Chlor 0.9% 1000ml Bag IV 10/07/20 09:15
[2020-10-07 08:08] LABS: Appearance,Urine SL CLOUDY (Clear); Bilirubin,Urine Negative (Negative); Blood, Urine 3+ (Negative); Color,Urine ORANGE (Yellow); Glucose,Urine (UA) Negative (Negative); Ketones,Urine Negative (Negative); Leukocyte Esterase,Urine Negative (Negative); Nitrate,Urine POSITIVE (Negative); PH,Urine 5.5 (5.0-8.5); Protein,Urine 2+ (Negative); Specific Gravity, Urine >= 1.030 (1.005-1.030); Urobilinogen,Urine 0.2 EU/dl (0.2)
[2020-10-07 08:30] LABS: RBC,Urine TNTC #/hpf (0-3); Squamous Epithelial Cell,Urine Occasional #/hpf (0-5); WBC,Urine Occasional #/hpf (0-3)
[2020-10-07 08:31] LABS: Amorphous Sediment,Urine 2+ /lpf; Bacteria,Urine 2+ /lpf
[2020-10-07 08:35] VITALS: BP 122/78; PULSE 62; RESP 18; O2SAT 98
[2020-10-07 09:00] VITALS: BP 126/70; PULSE 84; RESP 18; O2SAT 99
[2020-10-07 09:20] VITALS: BP 133/76; PULSE 76; RESP 18; TEMP 36.7; O2SAT 98
== END 2020-10-07 09:21 | disposition home or self-care (01) ==
PROVIDERS: Emergency Provider Emergency Medicine; PCP Nurse Practitioner Family
DX: N20.0 Calculus of kidney (principal); N10 Acute pyelonephritis
CPT/HCPCS: 74176; 80053; 81001; 85025; 87086; 96367; 96374; 96375; 99284; J2405

== ENCOUNTER → 2020-10-13 09:42 | Outpatient (CLI) | payer BC, SELFPAY ==
--- NOTE | 2020-10-13 09:43 | MR_ITS ---
PROCEDURE: MR ABDOMEN WO/W CON CLINICAL INDICATION: pancreatic protocol Abnormal CT scan 10-07-20. No surgeries. 22ml prahance given. Lot:[id number] exp: Aug 21. COMPARISON: CT CT ABDOMEN PELVIS WO CON from 10/07/2020 TECHNIQUE: Routine multiplanar multi echo sequences are performed without and with dynamic gadolinium enhancement. MRCP images also performed. FINDINGS: There is fullness of the head of the pancreas as seen on the CT scan. This however has normal signal intensity on all imaging sequences similar to the rest of the pancreas. No abnormal enhancement or lack of enhancement. Therefore, this is felt to be a normal variant as opposed to a pancreatic mass. Three to six-month follow-up suggested for confirmation. The liver, gallbladder, spleen, the and adrenal glands have an unremarkable appearance. There is a 2.7 cm right renal cyst. 8 mm stone is present in the upper pole of the right kidney within a mildly dilated calyx. Previously there was a ureteral calculus noted in the proximal ureter. This is not well evaluated on MRI. There is mild prominence of the right renal collecting system. MRCP images show normal caliber common bile duct. Pancreatic duct also normal caliber. No common duct stones apparent IMPRESSION: Fullness of the head of the pancreas once again noted but does not appear to represent a pancreatic mass. Recommend 3 to six-month follow-up to confirm stability. Right renal cyst with right nephrolithiasis. Dictated by: Michael English MD 10/15/2020 10:02 Michael English MD in [place] 10/15/2020 10:02
== END ==
PROVIDERS: PCP Nurse Practitioner Family; Visit Provider Emergency Medicine
DX: K86.9 Disease of pancreas, unspecified (principal)
CPT/HCPCS: 74183; 76376; A9576

== ENCOUNTER → 2021-01-05 13:33 | Outpatient (CLI) | payer BC, SELFPAY ==
[2021-01-05 15:32] LABS: Basophils # 0.1 K/mm3 (0-0.2); Basophils % 0.9 % (0.1-2.0); Eosinophils # 0.3 K/mm3 (0.0-0.4); Hematocrit 42.7 % (42.0-52.0); Hemoglobin 14.9 g/dL (14.1-18.0); Lymphocytes # 2.1 K/mm3 (0.7-4.5); Lymphocytes % 29.7 % (10-50); Mean Corpuscular HGB Conc 34.9 g/dL (31.8-35.4); Mean Corpuscular Hemoglobin 30.8 pg (27.0-31.2); Mean Corpuscular Volume 88.2 fl (80-94); Mean Platelet Volume 8.7 fl (7.4-10.4); Monocytes # 0.6 K/mm3 (0.1-1.0); Neutrophils % 57.4 % (37.0-80.0); Platelet Count 244 K/mm3 (142-424); Red Blood Count 4.85 M/mm3 (4.60-6.20); Red Cell Distribution Width 12.8 % (11.5-17.5); White Blood Count 6.9 K/mm3 (4.8-10.8)
[2021-01-05 15:55] LABS: Alanine Aminotransferase 26 U/L (12-78); Albumin Level 4.6 g/dl (3.5-5.0); Albumin/Globulin Ratio 1.9 (1.1-1.8); Alkaline Phosphatase 82 U/L (38-126); Anion Gap 13.3 mEq/L (5-15); Aspartate Amino Transferase 32 U/L (17-59); Bilirubin,Total 1.1 mg/dl (0.2-1.3); Blood Urea Nitrogen 12 mg/dl (9-20); Calcium 9.3 mg/dl (8.4-10.2); Carbon Dioxide 30 mmol/L (22.0-30.0); Chloride 102 mmol/L (98-107); Chol/HDL Ratio 5.9 (1-3.5); Cholesterol 196 mg/dl (140-200); Estimated Glomerular Filt Rate 118 ml/min (>60); GFR (African American) 142 ML/MIN (>60); Globulin 2.4 g/dL (1.3-3.2); Glucose 112 mg/dl (74-100); HDL Cholesterol 33 mg/dl (40-60); Potassium 4.3 mmoL/L (3.5-5.1); Sodium 141 mmol/L (136-145); Triglycerides 363 mg/dl (30-150); VLDL Cholesterol 73 mg/dL (0-40)
[2021-01-05 15:59] LABS: Hemoglobin A1C 5.7 % (4.0-6.0)
[2021-01-05 16:06] LABS: Direct LDL Cholesterol 105.86 mg/dL (100-129)
[2021-01-05 16:12] LABS: T4 (Thyroxine) 7.3 ug/dl (5.53-11.0)
[2021-01-05 16:26] LABS: Prostate Specific Ag Screen 1.6 ng/ml (0.0-4.0); Thyroid Stimulating Hormone 4.55 uIU/mL (0.465-4.68)
[2021-01-05 17:20] LABS: Amphetamine/Metha Screen,Urine Negative ng/ml (<1000)
[2021-01-05 17:21] LABS: Barbiturates Screen,Urine Negative ng/ml (<200); Benzodiazepines Screen,Urine Negative ng/ml (<200)
[2021-01-05 17:22] LABS: Cannabinoid Screen,Urine Negative ng/ml (<50); Cocaine Screen,Urine Negative ng/ml (<300)
[2021-01-05 17:23] LABS: Methadone Screen,Urine Negative ng/ml (<300)
[2021-01-05 17:24] LABS: Opiate Screen,Urine Negative ng/ml (<300); Phencyclidine Screen,Urine Negative ng/ml (<25)
== END ==
PROVIDERS: Visit Provider Nurse Practitioner Family
DX: M54.9 Dorsalgia, unspecified (principal); R53.83 Other fatigue; R73.03 Prediabetes; Z12.5 Encounter for screening for malignant neoplasm of prostate; Z79.899 Other long term (current) drug therapy; Z68.36 Body mass index [BMI] 36.0-36.9, adult
CPT/HCPCS: 80053; 80061; 80305; 82306; 83036; 84436; 84443; 85025; G0103

== ENCOUNTER → 2021-03-22 08:16 | Outpatient (CLI) | payer BC, SELFPAY ==
--- NOTE | 2021-03-22 08:16 | MR_ITS ---
PROCEDURE: MR ABDOMEN WO/W CON CLINICAL INDICATION: pancreatic protocol COMPARISON: CT CT ABDOMEN PELVIS WO CON from 10/07/2020 MR MR ABDOMEN WO/W CON from 10/13/2020 TECHNIQUE: Routine multiplanar multi echo sequences are performed without and with gadolinium enhancement. MRCP images also performed FINDINGS: The liver, gallbladder, spleen, and adrenal glands have an unremarkable appearance. There is a 3 cm right renal cyst. There remains fullness in the pancreatic head. However, no definite mass or abnormal areas of enhancement apparent. There is a splenule present as a normal variant. MRCP images show normal caliber common bile duct and pancreatic duct. No filling defects. No obvious gallstones. IMPRESSION: Stable MRI appearance of the abdomen. Fullness in the pancreatic head is unchanged with no definite mass. No acute finding. Dictated by: Michael English MD 03/23/2021 06:35 Michael English MD in [place] 03/23/2021 06:35
== END ==
PROVIDERS: PCP Nurse Practitioner Family; Visit Provider Nurse Practitioner Family
DX: K86.9 Disease of pancreas, unspecified (principal)
CPT/HCPCS: 74183; 76376; A9576

== ENCOUNTER 2021-04-18 18:28 | Emergency (ER) | payer BC, SELFPAY ==
[2021-04-18 18:56] VITALS: BP 152/90; PULSE 82; RESP 18; TEMP 36.9; O2SAT 98; BMI 34.4
--- NOTE | 2021-04-18 18:57 | HMH.EDGENADL ---
ED Disposition Clinical Impression: Flank pain, ELIECER (acute kidney injury) Disposition: Home, Self-Care Condition on Discharge: Good Prescriptions: Ketorolac Tromethamine [Toradol 10mg tablet] 10 mg PO Q6HP PRN #16 tab MDD 40mg/day PRN Reason: Mild To Moderate Pain Transmission Status: Pending to [facility] Tamsulosin HCl [Flomax 0.4mg capsule] 0.4 mg PO HS #30 cap Transmission Status: Pending to [facility] Ondansetron [Zofran 4mg ODT] 4 mg PO TIDP PRN #10 tab PRN Reason: Nausea Transmission Status: Pending to [facility] Referrals: Marco Marie APRN [Primary Care Provider] - 3 days Hema Sanders MD [Staff Physician] - (call in the morning) Time of Disposition: 19:35 - Critical Care Critical Care Time: No Attestation: On 04/18/21, the high probability of a clinically significant, sudden or life threatening deterioration of the following system(s) required my full and direct attention, intervention and personal management. The time I documented below is in addition to time spent performing reported procedures but includes the following listed in this critical care notation. Medical Decision Making - Medical Records Medical records reviewed: Yes: I reviewed the patient's medical records. - Jonas Inquiry Pt receiving controlled substance: No Vital Signs: 04/18/21 18:56 Temperature 98.4 F Temperature Source Oral Pulse Rate [Left Radial] 82 Respiratory Rate 18 Blood Pressure [Right Arm] 152/90 H Blood Pressure Mean [Right Arm] 110 Blood Pressure Source [Right Arm] Automatic Cuff Blood Pressure Position [Right Arm] Sitting 02 Sat by Pulse Oximetry 98 Oxygen Delivery Method Room Air - Lab Data Lab Results 04/18/21 18:54: Sodium 141, Potassium 4.3, Chloride 106, Carbon Dioxide 26, Anion Gap 13.3, BUN 18, Creatinine 1.30 H, Estimated Creat Clear 100, Estimated GFR 58 L, Est GFR ( Amer) 70, Glucose 124 H, Calcium 8.8, Phosphorus 3.2, Albumin 4.3 04/18/21 18:59: Urine Color Yellow, Urine Appearance Clear, Urine pH 6.0, Ur Specific [place] 1.025, Urine Protein Negative, Urine Glucose (UA) Negative, Urine Ketones Negative, Urine Blood Negative, Urine Nitrate Negative, Urine Bilirubin Negative, Urine Urobilinogen 0.2, Ur Leukocyte Esterase Negative, Urine RBC None, Urine WBC None, Ur Squamous Epith Cells None, Urine Bacteria None Result diagrams: 04/18/21 18:54 Orders (Tests/Meds): ED MEDICATIONS Discontinued Medications Generic Name Dose Route Start Last Admin Trade Name Dianelys PRN Reason Stop Dose Admin Ketorolac Tromethamine 15 mg 04/18/21 19:03 04/18/21 19:14 Ketorolac 30mg/Ml Vial IV 04/18/21 19:04 15 mg ONCE ONE Administration Ondansetron HCl 4 mg 04/18/21 19:03 04/18/21 19:15 Ondansetron 4mg/2ml Vial IV 04/18/21 19:04 4 mg ONCE ONE Administration ORDERS Category Date Time Status Complete Blood Count Auto Diff Stat Lab 04/18/21 18:59 Stop Req Comprehensive Metabolic Panel Stat Lab 04/18/21 18:59 Stop Req Medical Decision Narrative: 55yo M evaluated for right flank pain. Patient has known history of kidney stones and had a CT scan earlier this year demonstrating such. He is in no acute distress on initial evaluation. He does have CVA tenderness on the right. Urinalysis, renal panel are pending. Will also obtain a KUB. No indication for CT at this time. Symptomatically the patient is treated with Toradol and Zofran in the emergency department. No significant findings on the patient's KUB. Patient's urine is normal. Patient does have an ELIECER on renal panel; creatinine 1.3. Started on Flomax this evening. Encouraged to follow with PCP/urologist tomorrow for further evaluation. General Adult HPI - General Stated complaint: pain in right back flank Time Seen by Provider: 04/18/21 18:57 Mode of Arrival: Ambulatory - History of Present Illness HPI narrative: 55yo M presented emergency department
--- NOTE | 2021-04-18 19:04 | XR_ITS ---
PROCEDURE INFORMATION: Exam: XR Abdomen Exam date and time: 04/18/2021 7:04 PM Age: 55 years old Clinical indication: Abdominal pain; Patient HX: Right flank pain , HX of kidney stones; Additional info: R flank pain TECHNIQUE: Imaging protocol: XR of the abdomen. Views: Frontal supine view of the abdomen. 1 View. COMPARISON: MR ABDOMEN WO/W CON 03/22/2021 8:30 AM FINDINGS: Gastrointestinal tract: Normal. No bowel dilation. Organs: Calcifications project over the right kidney shadow. One measures 7 mm towards the upper pole. This could also potentially be a gallstone. Bones/joints: Probable bone island in the right iliac bone. IMPRESSION: Probable right kidney stone, but no definite ureteral stones.
[2021-04-18 19:05] LABS: Microscopic, Urine URINE MICROSCOPIC (MICROSCOPIC)
[2021-04-18 19:07] LABS: Appearance,Urine CLEAR (Clear); Bilirubin,Urine Negative (Negative); Blood, Urine Negative (Negative); Color,Urine YELLOW (Yellow); Glucose,Urine (UA) Negative (Negative); Ketones,Urine Negative (Negative); Leukocyte Esterase,Urine Negative (Negative); Nitrate,Urine Negative (Negative); Protein,Urine Negative (Negative); Specific Gravity, Urine 1.025 (1.005-1.030); Urobilinogen,Urine 0.2 EU/dl (0.2)
[2021-04-18 19:10] LABS: Albumin Level 4.3 g/dl (3.5-5.0); Chloride 106 mmol/L (98-107); Potassium 4.3 mmoL/L (3.5-5.1); Sodium 141 mmol/L (136-145)
[2021-04-18 19:12] LABS: Blood Urea Nitrogen 18 mg/dl (9-20); Creatinine Clearance Estimated 100 mL/min (50-200); Estimated Glomerular Filt Rate 58 ml/min (>60); GFR (African American) 70 ML/MIN (>60)
[2021-04-18 19:13] LABS: Anion Gap 13.3 mEq/L (5-15); Calcium 8.8 mg/dl (8.4-10.2); Carbon Dioxide 26 mmol/L (22.0-30.0); Glucose 124 mg/dl (74-100); Phosphorous 3.2 mg/dl (2.5-4.5)
[2021-04-18 19:41] LABS: Basophils # 0.1 K/mm3 (0-0.2); Basophils % 0.5 % (0.1-2.0); Eosinophils # 0.2 K/mm3 (0.0-0.4); Eosinophils % 2.3 % (0.1-12.0); Hematocrit 44.5 % (42.0-52.0); Hemoglobin 15.3 g/dL (14.1-18.0); Lymphocytes # 1.4 K/mm3 (0.7-4.5); Lymphocytes % 14.1 % (10-50); Mean Corpuscular HGB Conc 34.3 g/dL (31.8-35.4); Mean Corpuscular Hemoglobin 31.6 pg (27.0-31.2); Mean Corpuscular Volume 91.9 fl (80-94); Mean Platelet Volume 8.5 fl (7.4-10.4); Monocytes # 0.8 K/mm3 (0.1-1.0); Monocytes % 8.1 % (1.7-9.3); Neutrophils # 7.6 K/mm3 (1.8-7.8); Platelet Count 226 K/mm3 (142-424); Red Blood Count 4.85 M/mm3 (4.60-6.20); Red Cell Distribution Width 12.9 % (11.5-17.5); White Blood Count 10.2 K/mm3 (4.8-10.8)
[2021-04-18 20:01] VITALS: BP 149/82; PULSE 80; RESP 18; TEMP 36.9; O2SAT 98
[2021-04-18 20:36] LABS: Chloride 105 mmol/L (98-107); Potassium 4.4 mmoL/L (3.5-5.1); Sodium 139 mmol/L (136-145)
[2021-04-18 20:38] LABS: Blood Urea Nitrogen 19 mg/dl (9-20); Creatinine Clearance Estimated 100 mL/min (50-200); Estimated Glomerular Filt Rate 58 ml/min (>60); GFR (African American) 70 ML/MIN (>60)
[2021-04-18 20:39] LABS: Alanine Aminotransferase 21 U/L (12-78); Albumin Level 4.2 g/dl (3.5-5.0); Albumin/Globulin Ratio 1.6 (1.1-1.8); Alkaline Phosphatase 84 U/L (38-126); Anion Gap 12.4 mEq/L (5-15); Aspartate Amino Transferase 37 U/L (17-59); Bilirubin,Total 1.2 mg/dl (0.2-1.3); Calcium 8.8 mg/dl (8.4-10.2); Carbon Dioxide 26 mmol/L (22.0-30.0); Globulin 2.7 g/dL (1.3-3.2); Glucose 125 mg/dl (74-100); Total Protein,Serum 6.9 g/dl (6.3-8.2)
== END 2021-04-18 20:02 | disposition home or self-care (01) ==
LOC: UTC 18:33 → ER 18:45
PROVIDERS: Emergency Provider Family Medicine; PCP Nurse Practitioner Family
DX: R10.11 Right upper quadrant pain (principal); R31.9 Hematuria, unspecified; G40.909 Epilepsy, unspecified, not intractable, without status epilepticus
CPT/HCPCS: 74018; 80053; 80069; 81001; 85025; 96374; 96375; 99282; J2405

== ENCOUNTER → 2021-04-26 09:15 | Outpatient (CLI) | payer BC, SELFPAY ==
--- NOTE | 2021-04-26 09:19 | XR_ITS ---
PROCEDURE: XR KUB CLINICAL INDICATION: kidney stone COMPARISON: CT CT ABDOMEN PELVIS WO CON from 10/07/2020 CR XR KUB from 04/18/2021 FINDINGS: There is an 8 mm calcification to the right of L2 vertebral body consistent with a kidney stone which may be at the ureteropelvic junction. This previously was in the upper pole of the right kidney. An additional calcific density is present overlying the L2 transverse process on the right suspicious for proximal ureteral stone. A 3 mm calcific density is present in the right pelvic region overlying the sacrum and may be due to a distal ureteral calculus. There is a 4 mm calcific density in the left pelvic region probably due to a phleboliths. Calcification overlies the right ilium consistent with a bone island at approximately 9 mm. IMPRESSION: 8 mm right ureteropelvic junction stone, 7 mm proximal right ureteral stone, and suspected 3 mm right distal ureteral calculus. Dictated by: Michael English MD 04/26/2021 12:16 Michael English MD in [place] 04/26/2021 12:16
== END ==
PROVIDERS: PCP Nurse Practitioner Family; Visit Provider Urology
DX: N20.0 Calculus of kidney (principal)
CPT/HCPCS: 74018

== ENCOUNTER → 2021-05-03 08:50 | Outpatient (CLI) | payer BC, SELFPAY ==
--- NOTE | 2021-05-03 08:52 | XR_ITS ---
PROCEDURE: XR KUB CLINICAL INDICATION: kidney stone COMPARISON: CT CT ABDOMEN PELVIS WO CON from 10/07/2020 CR XR KUB from 04/26/2021 FINDINGS: There is a 9 by 5 mm stone at the region of the ureteropelvic junction/proximal right ureter on the right. And 8 x 3 mm stone is present on the right at the L3 level. Possible right ureterovesical junction stone at 3 mm. Left-sided pelvic phleboliths is present and there is a small bone island overlying the right ilium. Prostate calcifications also suspected. IMPRESSION: 9 x 5 mm right ureteral pelvic junction/proximal right ureter stone with an 8 x 3 mm right mid ureteral stone and possible right UVJ stone at 3 mm. Dictated by: Michael English MD 05/03/2021 17:26 Michael English MD in [place] 05/03/2021 17:26
== END ==
PROVIDERS: PCP Nurse Practitioner Family; Visit Provider Urology
DX: N20.0 Calculus of kidney (principal)
CPT/HCPCS: 74018

== ENCOUNTER → 2021-05-04 08:11 | Outpatient (CLI) | payer BC, SELFPAY ==
[2021-05-04 08:14] LABS: MANUAL DIFFERENTIAL MANUAL DIFFERENTIAL (MANUAL DIFF)
[2021-05-04 08:42] LABS: Basophils # 0.1 K/mm3 (0-0.2); Eosinophils # 0.3 K/mm3 (0.0-0.4); Eosinophils % 3.9 % (0.1-12.0); Hematocrit 47.8 % (42.0-52.0); Lymphocytes # 2.3 K/mm3 (0.7-4.5); Lymphocytes % 28.2 % (10-50); Mean Corpuscular HGB Conc 33.5 g/dL (31.8-35.4); Mean Corpuscular Hemoglobin 31.2 pg (27.0-31.2); Mean Corpuscular Volume 93.1 fl (80-94); Mean Platelet Volume 7.3 fl (7.4-10.4); Monocytes # 0.6 K/mm3 (0.1-1.0); Monocytes % 7.3 % (1.7-9.3); Neutrophils # 4.8 K/mm3 (1.8-7.8); Neutrophils % 59.6 % (37.0-80.0); Platelet Count 256 K/mm3 (142-424); Red Blood Count 5.14 M/mm3 (4.60-6.20); Red Cell Distribution Width 13.1 % (11.5-17.5)
[2021-05-04 09:14] LABS: Chloride 103 mmol/L (98-107); Potassium 5.2 mmoL/L (3.5-5.1); Sodium 141 mmol/L (136-145)
[2021-05-04 09:17] LABS: Anion Gap 13.2 mEq/L (5-15); Blood Urea Nitrogen 11 mg/dl (9-20); Carbon Dioxide 30 mmol/L (22.0-30.0); Estimated Glomerular Filt Rate 140 ml/min (>60); GFR (African American) 170 ML/MIN (>60)
[2021-05-04 09:18] LABS: Calcium 9.9 mg/dl (8.4-10.2); Glucose 120 mg/dl (74-100)
[2021-05-04 09:39] LABS: Hypochromasia 3+; Lymphocytes % 5 % (10-50); Macrocytosis 3+; Monocytes % 8 % (2-9); Neutrophils % 87 % (42-76); Platelet Estimate Normal; Total Cells Counted 100
== END ==
PROVIDERS: Visit Provider Urology
DX: Z01.812 Encounter for preprocedural laboratory examination (principal); Z11.52 Encounter for screening for COVID-19; N20.0 Calculus of kidney; K59.00 Constipation, unspecified
CPT/HCPCS: 36415; 80048; 85007; 85014; 85018; 85048; 85049; C9803; U0003; U0005

== ENCOUNTER 2021-05-06 11:02 | Day surgery (SDC) | payer BC, SELFPAY ==
[2021-05-04 10:31] VITALS: BMI 35.2
[2021-05-06] VITALS (8 sets, daily range): BP systolic 110–140; BP diastolic 63–100; PULSE 63–77; RESP 12–20; TEMP 36.1–36.4; O2SAT 92–99
--- NOTE | 2021-05-06 11:10 | XR_ITS ---
PROCEDURE: XR KUB CLINICAL INDICATION: kidney stone COMPARISON: CT CT ABDOMEN PELVIS WO CON from 10/07/2020 FINDINGS: Shadows partially obscured by overlying stool and bowel gas in the ascending colon and hepatic flexure. There is a well-defined oval calculus measuring approximately 8 point 6 mm in the region of the right renal pelvis artery UV junction sitting between the transverse processes of L1 and L2. This likely is the same calculus seen in the upper pole right kidney on the CT scan abdomen and pelvis 10/07/2020. There is a possible 2nd calculus measuring 7.5 mm overlying the transverse process of L3 on the right side. There are no definite calculi overlying left renal shadow. There is a calcification low in the left side of the pelvis likely phleboliths. IMPRESSION: Probable 2 separate right ureteral calculi 1 sitting near the UPjunction, the other proximal ureter with measurements as described Dictated by: Dr. Sanjeev Dowling MD 05/06/2021 11:31 Dr. Sanjeev Dowling MD in [place] 05/06/2021 11:31
--- NOTE | 2021-05-06 12:19 | HMH.ANESCL ---
[facility] Anesthesia Checklist - Patient Identification Patient Identification: Arm Band - Structural Data Admitted From: Home Planned Operative Procedure/s: Right ESWL Consent for Planned Operative Procedure(s) Verified: Yes Verified Documents: Surgical Consent, History and Physical - NPO Status Verified Time NPO: 00:00 - Additional verifications Anesthesia Reactions: No Hx Blood Transfusions: No Blood Transfusion Reaction: No - Airway Assessment C-Spine Mobility Assessed: Yes (mp2) TMJ Mobility Assessed: Yes Dentition: Good Dentition - Neurological Assessment Level of Consciousness: Awake, Alert - Anesthesia Plan Anesthesia Risk discussed: Yes Anesthesia Plan: Verified ASA Class: II Anesthesia Type: General [facility] History I have reviewed the patient's past medical history: Yes Medical History: Reports:: Kidney Stones Denies:: Cancer, Diabetes Mellitus Type 1, Diabetes Mellitus Type 2, Internal Pacemaker, Lung Disease, MRSA, Seizures *Have you ever received a pneumonia vaccine?: No *Have you received a flu vaccine this season?: No Other Medical History: Reports: Arthritis, Other. Denies: Blood Transfusion Reaction Anesthesia experience/problems:: nac Laterality Cases: Bilateral: Arthroscopy Knee Other Surgeries: Yes: Colonoscopy. No: Pacemaker Amputation: No Fractures: No - *Social History Last grade of school completed: Advanced degree Smoking Status: Former smoker Tobacco Type: cigarettes #Yrs smoked (if former smoker): 10 Smoking End Date: Alcohol Intake: current Alcohol Intake Frequency:: holidays/special occasions only Substance Use Type: denies use *Occupational Status:: disabled Housing: house Household Members: spouse *Travel in the last 8 weeks: None Family Hx:: Cancer, Diabetes, Heart Attack, Kidney Disease
--- NOTE | 2021-05-06 15:36 | P.PN_ITS ---
[facility] Anesthesia Record Part I Intake, IV Amount: 1,500 Estimated blood loss (mL): 0 Urine output (mL): 0 Blood Pressure: 130/100 SaO2: 92 Pulse Rate: 77 Respiratory Rate: 12 Temperature: 97.6 F Patient is:: Awake, Stable Stable to PACU at:: 15:35
--- NOTE | 2021-05-06 15:39 | HMH.OPNOTE ---
Date of procedure: 05/06/21 Pre-op Diagnosis:: Right ureteral calculi Post-op Diagnosis:: Right ureteral calculi x2 Procedure performed:: Cystoscopy with stone manipulation/ESWL of right kidney stone/ESWL of right ureteral stone. Surgeon:: Hema Sanders MD PARKING ANALYST:: Dilshad Fatima Anesthesia: LMA Estimated blood loss (mL): 0 Clinical Note:: 55-year-old white male with history of right renal colic noted to have right nephrolithiasis. Follow-up KUB is revealed 2 calcifications noted region of the right proximal ureter. He is minimally symptomatic. He presents today for urologic management. Operative findings:: 2 ureteral calculi are present. The distal ureteral stone was difficult to manipulate the ureteral catheter and guidewire diet. Once we did bypass the distal stone we were able to manipulate the more proximal ureteral stone back into the renal pelvis but the more distal stone could only be manipulated slightly more proximal. ESWL was performed of the right kidney stone in the right ureteral stone. Operative note:: Patient taken to the operating room after informed consent was obtained. Was placed on the operating table in the supine position and general anesthesia administered. Preoperative antibiotics and sequential compression devices were placed. He was then placed into the dorsal lithotomy position and prepped and draped in the standard surgical fashion. 22 Clarke passed into the urethra and into the bladder without difficulty. The bladder was examined in a systematic fashion and showed no evidence of stones, diverticula, tumors or trabeculation. The ureteral orifices were in their normal anatomic position and clear efflux was noted from each. A 5 [place] ureteral catheter passed into the right ureteral orifice and there was resistance noted at the proximal ureter. Fluoroscopy revealed 2 stones in the course of the right proximal ureter. We were able to manipulate a guidewire by the more distal stone and into the renal pelvis. We were then able to manipulate the 5 [place] ureteral catheter by the distal stone and the more proximal stone was manipulated into the renal pelvis without difficulty. The more distal stone was resistant passing into the renal pelvis. We used the ureteral catheter to try to push it up and we also used a syringe with saline through the ureteral catheter to try to push it up and neither were successful. I left ureteral catheter indwelling and patient positioned for lithotripsy. The ureteral stone was treated first and 3000 shockwaves and energy of 9 was used on the ureteral stone. We then moved the patient for treatment of the right kidney stone and 3000 shockwaves at a maximum energy of 7 was used. There appeared to be good fragmentation of the stones. The ureteral catheter was removed at the end of the case. Patient tolerated well. Condition: stable Disposition: PACU Specimens:: None Complications:: None
[2021-05-09 13:40] VITALS: BP 122/88; PULSE 67; TEMP 36.1
--- NOTE | 2021-05-09 13:40 | P.PN_ITS ---
[facility] Anesthesia Record Part II Discharge Time: 16:05 Destination: Surgical Day Care (OP Surgery) PACU nurse assessment reviewed?: Yes Patient Condition:: Good Anesthesia Complications:: None Swallowing reflex intact?: Yes Cyanosis?: No Blood Pressure: 122/88 Pulse Rate: 67 Temperature: 97 F Mental Status: Alert & Oriented Pain level:: 0 Nausea and/or vomitting:: None Intake, IV Amount: 0
== END 2021-05-06 16:35 | disposition home or self-care (01) ==
LOC: OR 11:03
PROVIDERS: PCP Nurse Practitioner Family; Visit Provider Urology
PROC: (CPT 50590; principal; 2021-05-06 12:30)
DX: N20.0 Calculus of kidney (principal); N20.1 Calculus of ureter; M19.90 Unspecified osteoarthritis, unspecified site; Z87.891 Personal history of nicotine dependence; Z80.9 Family history of malignant neoplasm, unspecified; Z83.3 Family history of diabetes mellitus; Z84.1 Family history of disorders of kidney and ureter; Z88.8 Allergy status to other drugs, medicaments and biological substances; Z79.899 Other long term (current) drug therapy
CPT/HCPCS: 50590; 74018; 96374; J2405

== ENCOUNTER → 2021-05-13 14:39 | Outpatient (CLI) | payer BC, SELFPAY ==
--- NOTE | 2021-05-13 14:43 | XR_ITS ---
PROCEDURE: XR KUB CLINICAL INDICATION: kidney stone COMPARISON: CT CT ABDOMEN PELVIS WO CON from 10/07/2020 CR XR KUB from 05/06/2021 FINDINGS: Stool somewhat obscures the right kidney. There remains a stone in the mid right ureter at 7 mm at the L3-L4 level. The previously noted stone in the right UPJ appears to lie just cephalad to the more distal stone compared to the previous exam both at the L3 level. Small sclerotic focus is present in the right ilium and may be due to a bone island . IMPRESSION: Two right mid ureteral calculi. Dictated by: Michael English MD 05/13/2021 15:32 Michael English MD in [place] 05/13/2021 15:32
== END ==
PROVIDERS: PCP Nurse Practitioner Family; Visit Provider Urology
DX: N20.0 Calculus of kidney (principal)
CPT/HCPCS: 74018

== ENCOUNTER → 2022-07-06 09:57 | Outpatient (CLI) | payer MEDICARE, BC, SELFPAY ==
[2022-07-06 12:19] LABS: Alanine Aminotransferase 27 U/L (12-78); Albumin Level 4.7 g/dl (3.5-5.0); Alkaline Phosphatase 115 U/L (38-126); Anion Gap 13.6 mEq/L (5-15); Aspartate Amino Transferase 32 U/L (17-59); Bilirubin,Total 0.9 mg/dl (0.2-1.3); Blood Urea Nitrogen 12 mg/dl (9-20); Calcium 9.7 mg/dl (8.4-10.2); Carbon Dioxide 27 mmol/L (22.0-30.0); Chloride 103 mmol/L (98-107); Estimated Glomerular Filt Rate 117 ml/min (>60); GFR (African American) 141 ML/MIN (>60); Globulin 2.3 g/dL (1.3-3.2); Glucose 108 mg/dl (74-100); Potassium 4.6 mmoL/L (3.5-5.1); Sodium 139 mmol/L (136-145)
[2022-07-06 12:29] LABS: Basophils # 0.1 K/mm3 (0-0.2); Basophils % 1.3 % (0.1-2.0); Eosinophils # 0.3 K/mm3 (0.0-0.4); Eosinophils % 4.4 % (0.1-12.0); Hematocrit 46.6 % (42.0-52.0); Hemoglobin 15.5 g/dL (14.1-18.0); Lymphocytes # 1.8 K/mm3 (0.7-4.5); Lymphocytes % 27.1 % (10-50); Mean Corpuscular HGB Conc 33.3 g/dL (31.8-35.4); Mean Corpuscular Hemoglobin 30.6 pg (27.0-31.2); Mean Corpuscular Volume 91.7 fl (80-94); Mean Platelet Volume 8.1 fl (7.4-10.4); Monocytes # 0.5 K/mm3 (0.1-1.0); Neutrophils # 3.9 K/mm3 (1.8-7.8); Neutrophils % 60.1 % (37.0-80.0); Platelet Count 277 K/mm3 (142-424); Red Blood Count 5.08 M/mm3 (4.60-6.20); Red Cell Distribution Width 12.6 % (11.5-17.5); White Blood Count 6.6 K/mm3 (4.8-10.8)
== END ==
PROVIDERS: PCP Nurse Practitioner Family; Visit Provider Nurse Practitioner Family
DX: E66.9 Obesity, unspecified (principal); Z68.34 Body mass index [BMI] 34.0-34.9, adult; M10.9 Gout, unspecified; Z79.899 Other long term (current) drug therapy
CPT/HCPCS: 36415; 80053; 84439; 85025

== ENCOUNTER → 2022-07-17 07:04 | Outpatient (CLI) | payer MEDICARE, BC, SELFPAY | PROVIDERS: PCP Nurse Practitioner Family; Visit Provider Nurse Practitioner Family | DX: R53.81 Other malaise (principal) | CPT/HCPCS: 36415; 84443 ==

== ENCOUNTER 2023-04-28 09:51 | Emergency (ER) | payer MEDICARE, BC, SELFPAY ==
[2023-04-28 10:04] VITALS: BP 145/83; PULSE 71; O2SAT 97
--- NOTE | 2023-04-28 10:09 | CT_ITS ---
PROCEDURE INFORMATION: Exam: CT Lumbar Spine Without Contrast Exam date and time: 04/28/2023 10:24 AM Age: 57 years old Clinical indication: Low back pain; Additional info: Low back pain rad down R leg TECHNIQUE: Imaging protocol: Computed tomography of the lumbar spine without contrast. Radiation optimization: All CT scans at this facility use at least one of these dose optimization techniques: automated exposure control; mA and/or kV adjustment per patient size (includes targeted exams where dose is matched to clinical indication); or iterative reconstruction. REPORTING DATA: Count of CT and Cardiac NM exams in prior 12 months: This patient has received 0 known CTs and 0 known cardiac nuclear medicine studies in the 12 months prior to the current study. COMPARISON: MR LUMBAR SPINE WO CON 12/26/2019 7:53 AM FINDINGS: Bones/joints: No acute fracture. Normal alignment. No significant disc bulge or herniation. No severe spinal canal stenosis. Multilevel facet arthropathy. No significant neural foraminal narrowing. Soft tissues: Unremarkable. IMPRESSION: No acute findings.
[2023-04-28 10:12] VITALS: BP 145/83; PULSE 79; RESP 16; TEMP 36.8; O2SAT 96; BMI 30.8
[2023-04-28 10:30] VITALS: BP 147/79; PULSE 76; O2SAT 90
--- NOTE | 2023-04-28 10:38 | HMH.EDGENADL ---
Discharge Plan Disposition Patient Disposition: Home, Self-Care Condition: Good Prescriptions Prescriptions: New lidocaine [Lidoderm] 5 % adhesive patch,medicated 1 patch topical DAILY Qty: 15 0RF Rx Instructions: leave on most painful area for up to 12 hrs naproxen 500 mg tablet 500 mg PO Q12H PRN (Reason: pain) Qty: 20 0RF No Action gabapentin 300 mg capsule 300 mg PO DAILY Qty: 30 3RF colchicine (gout) 0.6 mg tablet See Rx Instructions .ROUTE .COMPLEX Qty: 30 0RF Dose Instruction: TAKE 1 TABLET BY MOUTH ONCE DAILY FOR GOUT Rx Instructions: TAKE 1 TABLET BY MOUTH ONCE DAILY FOR GOUT ibuprofen 600 MG tablet 600 mg PO TID Referrals Follow up/Referrals: Marco Marie APRN [Primary Care Provider] - See instructions Activity Restrictions/Add. Instructions Additional Instructions/Restrictions: You were evaluated in the emergency department today. Please seed cone picker your prescriptions at the pharmacy and take them as prescribed for pain. Also seed cone picker your prescriptions prescribed by your primary care provider and take those in addition to these medications. Follow-up with your primary care provider over the next 3 days. Return to the emergency department for any new or worsening symptoms. Clinical Impressions Clinical Impression: Low back pain Qualifiers: Chronicity: acute Back pain laterality: midline Sciatica presence: with sciatica Sciatica laterality: sciatica of right side Qualified Code(s): M54.41 - Lumbago with sciatica, right side Instructions Patient Instructions: DI for Low Back Pain, DI for Acute Pain -- Adult Discharge ED Provider: Latha Rodriguez General Adult HPI General Chief complaint: PAIN Stated complaint: Low back pain Time Seen by Provider: 04/28/23 10:01 Mode of Arrival: EMS Source of Information: Patient Limitations: No Limitations Description of Symptoms (Recalled from ER Triage Doc. by RN): 57 yo M presents to ED with c/o lower back pain. pt reports pain began approx 24 hours ago. he was walking around yesterday and bent over to pick something up, began to feel pain. pt reports no lose of b/b. but is unable to stand up or walk due to pain. History of Present Illness HPI narrative: This patient is a 57-year-old male with a history of degenerative disc disease presenting to the emergency department for evaluation with concern for low back pain radiating down his right leg. He reports yesterday when he was walking, he twisted and felt immediate pain in his middle lower back radiating down his right leg. He has taken oxycodone at home with no improvement. He states this happened in the past and he was told it was a disc. He denies any fevers, chills, night sweats, numbness, tingling, saddle anesthesia, incontinence, retention, or other concerns. He has otherwise been well. Related Data Home Medications Medication Instructions Recorded Confirmed ibuprofen 600 mg tablet 600 mg PO TID Pain 05/04/21 09/28/21 Previous Rx's Medication Instructions Recorded gabapentin 300 mg capsule 300 mg PO DAILY Pain #30 caps 09/28/21 colchicine (gout) 0.6 mg tablet See Rx Instructions .Route 11/29/21 .COMPLEX #30 tabs lidocaine 5 % topical patch 1 patch topical DAILY #15 ea 04/28/23 (Lidoderm) naproxen 500 mg tablet 500 mg PO Q12H PRN pain #20 tabs 04/28/23 Allergies Allergy/AdvReac Type Severity Reaction Status Date / Time prochlorperazine Allergy Verified 04/28/23 10:16 [From Compazine] [facility] Disclaimer: The information contained in this section may have been updated after the patient was seen, as this information can be updated by other users. Medical History Bulging lumbar disc History of acute gouty arthritis Neuroforaminal stenosis of lumbar spine Obesity (BMI 30.0-34.9) Surgical History Hx of knee surgery
--- NOTE | 2023-04-28 10:50 | PC.NURSE ---
Rounded on pt received a warm blanket
[2023-04-28 11:00] VITALS: BP 133/75; PULSE 67; O2SAT 90
--- NOTE | 2023-04-28 11:19 | PC.NURSE ---
attempted to ambulate pt with help and a gail and walker. pt states that he is unable to sit up, yelled out in pain. pt reports pain still located in middle of lower back.
--- NOTE | 2023-04-28 12:36 | PC.NURSE ---
Rounded on pt no needs at this time, call light at bs
--- NOTE | 2023-04-28 12:52 | PC.NURSE ---
ambulated pt with walker
--- NOTE | 2023-04-28 13:00 | PC.NURSE ---
pt was able to ambulate with walker and minimal assistance
[2023-04-28 13:16] VITALS: BP 133/75; PULSE 67; RESP 16; TEMP 36.7
== END 2023-04-28 13:17 | disposition home or self-care (01) ==
PROVIDERS: Emergency Provider Emergency Medicine; PCP Nurse Practitioner Family
DX: M54.41 Lumbago with sciatica, right side (principal); M54.6 Pain in thoracic spine; X50.1XXA Overexertion from prolonged static or awkward postures, initial encounter
CPT/HCPCS: 72131; 96374; 99284

== ENCOUNTER → 2023-07-25 11:02 | Outpatient (CLI) | payer MEDICARE, BC, SELFPAY | LOC: SL 11:03 | PROVIDERS: PCP Nurse Practitioner Family; Visit Provider Specialist | DX: G47.33 Obstructive sleep apnea (adult) (pediatric) (principal); R06.83 Snoring; R53.82 Chronic fatigue, unspecified | CPT/HCPCS: G0399 ==

== ENCOUNTER 2023-09-04 10:52 | Outpatient (CLI) | payer MEDICARE, BC, SELFPAY ==
--- NOTE | 2023-09-04 10:59 | XR_ITS ---
FINAL REPORT CLINICAL HISTORY: elbow pain/swelling/fluid. COMPARISON: None FINDINGS: AP, oblique, and lateral views of the right elbow were obtained. There is no prior exam for comparison. There is no acute fracture or dislocation. Joint space is preserved. There is soft tissue swelling overlying the olecranon process. IMPRESSION: No acute osseous abnormality of the right elbow. Soft tissue swelling overlying the olecranon process. Reviewed, Interpreted and Dictated by Jeancarlos Ramos III, MD Transcribed by Brittany Cheema Authenticated and . [facility]
== END 2023-09-04 23:59 ==
LOC: RAD 10:54
PROVIDERS: PCP Nurse Practitioner Family; Visit Provider Orthopaedic Surgery
DX: M25.521 Pain in right elbow (principal)
CPT/HCPCS: 73080

== ENCOUNTER → 2024-10-13 07:22 | Outpatient (CLI) | payer MEDICARE, BC, SELFPAY | LOC: SL 07:23 | PROVIDERS: PCP Specialist; Visit Provider Specialist | DX: G47.33 Obstructive sleep apnea (adult) (pediatric) (principal) | CPT/HCPCS: G0399 ==